=== PATIENT | male | born 1995 | race Caucasian/White ===

== ENCOUNTER 2019-03-09 11:03 | Emergency (ER) | payer MEDICAID, OTHER | END 2019-03-09 12:51 | disposition home or self-care (01) | LOC: EDH 11:03 | DX: R03.0 Elevated blood-pressure reading, without diagnosis of hypertension (principal); T50.995A Adverse effect of other drugs, medicaments and biological substances, initial encounter; Z72.0 Tobacco use; Y92.89 Other specified places as the place of occurrence of the external cause | CPT/HCPCS: 99281 ==